=== PATIENT | male | born 1950 | race Caucasian/White ===

== ENCOUNTER 2023-12-26 10:26 | Emergency (ER) | payer OTHER ==
[~2023-12-26] VITALS: Ht 175.3 cm; Wt 89.8 kg
[2023-12-26 10:27] VITALS: BP 89/42; PULSE 64; RESP 16
[2023-12-26 11:21] LABS: BASOPHILS # (AUTO) 0.04 K/uL (0.00-0.20); BASOPHILS % (AUTO) 0.7 % (0.0-5.0); EOSINOPHILS # (AUTO) 0.07 K/uL (0.00-0.70); EOSINOPHILS % (AUTO) 1.2 % (0.0-8.0); HEMATOCRIT 35.9 % (42-54); IMMATURE GRANULOCYTE ABSOLUTE 0.04 K/uL (0-1); LYMPHOCYTES # (AUTO) 1.1 K/uL (1.0-4.8); LYMPHOCYTES % (AUTO) 17.9 % (21.0-51.0); MEAN CORPUSCULAR HEMOGLOBIN 36.2 pg (27.0-33.0); MEAN CORPUSCULAR HGB CONC 35.1 g/dL (32.0-36.0); MEAN CORPUSCULAR VOLUME 103.2 fL (79-99); MONOCYTES # (AUTO) 0.7 K/uL (0.1-1.0); NEUTROPHILS # (AUTO) 4.1 K/uL (1.8-7.7); NEUTROPHILS % (AUTO) 68.5 % (40.0-77.0); PLATELET COUNT (AUTO) 144 K/uL (130-400); RED BLOOD CELL COUNT(AUTO) 3.48 MIL/uL (4.50-6.20); RED CELL DISTRIBUTION WIDTH 13.4 % (11.0-15.5)
[2023-12-26 11:36] LABS: ALBUMIN 2.1 g/dL (3.5-5.0); BILIRUBIN,TOTAL 2.4 mg/dL (0.2-1.0); CREATININE 1.5 mg/dL (0.5-1.3); POTASSIUM 4.6 mmol/L (3.5-5.1); TOTAL PROTEIN, SERUM 6.7 g/dL (6.0-8.3)
== END 2023-12-26 13:51 | disposition left against medical advice (07) ==
LOC: EDH 10:26
DX: R55 Syncope and collapse (principal); F10.20 Alcohol dependence, uncomplicated; I10 Essential (primary) hypertension
CPT/HCPCS: 36415; 70450; 71045; 80053; 84484; 85025; 93005

== ENCOUNTER 2025-05-28 05:45 | Day surgery (SDC) | payer OTHER ==
[2025-05-28] VITALS (11 sets, daily range): BP systolic 117–158; BP diastolic 45–77; PULSE 48–60; RESP 12–19; TEMP 97.1–97.7
[~2025-05-28] VITALS: Ht 175.3 cm; Wt 72.6 kg
[2025-05-28] MEDS: 0.9%NACL 1000ML 1,000 ML IV ONE (06:53)
[2025-05-28] MEDS ORDERED: LIDOCAINE HCL 400MG/20ML VIAL ONE (07:09)
== END 2025-05-28 08:35 | disposition home or self-care (01) ==
LOC: DAH 05:45 → ENDO 05:45
PROVIDERS: ATTEND Internal Medicine Gastroenterology
DX: Z12.11 Encounter for screening for malignant neoplasm of colon (principal); D12.5 Benign neoplasm of sigmoid colon; K57.30 Diverticulosis of large intestine without perforation or abscess without bleeding; I10 Essential (primary) hypertension; F41.9 Anxiety disorder, unspecified; F32.A Depression, unspecified; K74.60 Unspecified cirrhosis of liver; K72.90 Hepatic failure, unspecified without coma; K80.20 Calculus of gallbladder without cholecystitis without obstruction; Z79.899 Other long term (current) drug therapy
CPT/HCPCS: 45385; J3490; J7030 ×2; J2704 ×2; J2371; A4620; A4215 ×2; A4223; A4657; A7002; A4222; A4221; A4663; A4606